=== PATIENT | female | born 1985 | race Caucasian/White ===

== ENCOUNTER 2017-04-18 00:03 | Emergency (ER) | payer OTHER ==
[~2017-04-18] VITALS: Ht 167.6 cm; Wt 65.0 kg
[2017-04-18] VITALS (7 sets, daily range): BP systolic 101–127; BP diastolic 69–78; PULSE 87–122; RESP 16–18; TEMP 98.1; O2SAT 94–98
[2017-04-18] MEDS ORDERED: SODIUM CHLOR 0.9% 1000 ML INJ 1,000 ML IV ONE (00:20)
[2017-04-18] MEDS ORDERED: NALOXONE HCL 2 MG/2 ML VIAL IVP ONE (00:30)
[2017-04-18] MEDS ORDERED: SODIUM CHLORIDE 0.9% FLUSH 10 ML FLUSH IVF PRN (00:30)
[2017-04-18 02:15] LABS: AMPHETAMINE, URINE POS (NEG); BARBITURATES, URINE NEG (NEG); COCAINE, URINE POS (NEG)
--- NOTE | 2017-04-18 02:31 | PD ---
HPI Chief Complaint: OD/ Ingestion Time Seen by Provider: 00:20 Travel History International Travel<30 days: No Contact w/Intl Traveler<30days: No Traveled to known affect area: No History of Present Illness HPI 31-year-old female arrives by EMS. She was found unresponsive in the bathroom in a hotel. She abused IV drugs earlier in the evening. She states she used heroin intravenously. She reportedly inhaled cocaine earlier in the evening. Her last episode of abuse prior to this was 4 months prior. In the ER she has no medical complaints specifically however reports feeling very anxious about the near fatal overdose. She denies any suicidal ideation. EMS reports a GCS of 3 on scene with an O2 sat in the 50s. They gave the patient oxygen and naloxone. The O2 sat increased to 100% just prior to ER arrival the GCS was 15 shortly after naloxone. [facility] Past Medical History Anxiety: Yes Depression: Yes Tetanus Vaccination: Unknown Influenza Vaccination: No ?: Not LMP: 04/16/2017 Past Surgical History Gynecologic Surgery: Yes (OVARIAN TUMOR REMOVED) Social History Alcohol Use: No Tobacco Use: Yes Substance Use: Yes (HEROIN, COCCAINE, MARIJUANA) Allergies-Medications (Allergen,Severity, Reaction): Coded Allergies: No Known Allergies (Unverified , 04/18/17) Reported Meds & Prescriptions Reported Meds & Active Scripts Active No Active Prescriptions or Reported Medications Review of Systems Except as stated in HPI: all other systems reviewed are Neg Physical Exam Narrative GENERAL: 31-year-old female well-nourished well-developed speaking full sentences GCS 15 SKIN: Focused skin assessment warm/dry. HEAD: Atraumatic. Normocephalic. EYES: Pupils equal and round. No scleral icterus. No injection or drainage. ENT: No nasal bleeding or discharge. Mucous membranes pink and moist. NECK: Trachea midline. No JVD. CARDIOVASCULAR: Tachycardia. Regular rhythm. RESPIRATORY: No accessory muscle use. Clear to auscultation. Breath sounds equal bilaterally. GASTROINTESTINAL: Abdomen soft, non-tender, nondistended. Hepatic and splenic margins not palpable. MUSCULOSKELETAL: No obvious deformities. No clubbing. No cyanosis. No edema. NEUROLOGICAL: Awake and alert. No obvious cranial nerve deficits. Motor grossly within normal limits. Normal speech. PSYCHIATRIC: Appropriate mood and affect; insight and judgment normal. Data Data Last Documented VS Vital Signs Date Time Temp Pulse Resp B/P Pulse Ox O2 Delivery O2 Flow Rate FiO2 04/18/17 01:57 90 16 127/78 94 Nasal Cannula 2 04/18/17 00:06 98.1 Vital signs reviewed Orders Iv Access Insert/Monitor (04/18/17 00:20) Ecg Monitoring (04/18/17 00:20) Oximetry (04/18/17 00:20) Naloxone Inj (Narcan Inj) (04/18/17 00:30) Sodium Chloride 0.9% Flush (Ns Flush) (04/18/17 00:30) Sodium Chlor 0.9% 1000 Ml Inj (Ns 1000 M (04/18/17 00:20) Drug Screen, Random Urine (04/18/17 00:20) Alcohol (Ethanol) (04/18/17 00:20) Naloxone Inj (Narcan Inj) (04/18/17 02:45) Labs Laboratory Tests Test 04/18/17 04/18/17 00:30 01:55 Ethyl Alcohol Level LESS THAN 3 MG/DL Urine Opiates Screen POS Urine Barbiturates Screen NEG Urine Amphetamines Screen POS Urine Benzodiazepines Screen NEG Urine Cocaine Screen POS Urine Cannabinoids Screen POS MDM Medical Decision Making Medical Screen Exam Complete: Yes Emergency Medical Condition: Yes Differential Diagnosis IV drug abuse, overdose, cocaine abuse, opioid abuse, amphetamine abuse Narrative Course Urine drug screen is positive for amphetamines, opiates, marijuana and cocaine Alcohol level is less than 3 The patient has remained awake and alert throughout her ER stay of over 2-1/2 hours. We will send the patient home. Follow-up with the [facility] facility. [id number]: pt arousable to voice, continued clinical improvement has been observed throughout ER stay, pt will be observed here until ambulatory and has a sober adult filteration operator to escort her home. Diagnosis Primary Impression: Accidental heroin overdose Qualified Code: T40.1X1A - Accidental heroin overdose, initial encounter [facility] Additional Instructions: PLEASE TRY TO STOP ABUSING DRUGS. PLEASE RETURN TO THE ER FOR ANY REASON YOU CONSIDER APPROPRIATE. Med/Other Pt SpecificInfo: No Change to Meds Scripts No Active Prescriptions or Reported Meds Disposition: DISCHARGE HOME Condition: Stable Lenny Gamble MD Apr 18, 2017 02:31
[2017-04-18] MEDS ORDERED: NALOXONE HCL 2 MG/2 ML VIAL IV PUSH ONE ×2 (02:45→05:45)
== END 2017-04-18 10:06 | disposition home or self-care (01) ==
LOC: NEPE 00:03
DX: T40.1X1A Poisoning by heroin, accidental (unintentional), initial encounter (principal); R40.4 Transient alteration of awareness; Y92.59 Other trade areas as the place of occurrence of the external cause; F14.10 Cocaine abuse, uncomplicated; F12.10 Cannabis abuse, uncomplicated; F17.290 Nicotine dependence, other tobacco product, uncomplicated
CPT/HCPCS: 80307; 96361; 96374; 96376; 99284; J2310; J7030